=== PATIENT | female | born 1975 | race Caucasian/White ===

== ENCOUNTER 2020-04-21 09:19 | Inpatient (IN) ==
--- NOTE | 2020-03-27 09:07 | History & Physical Report ---
Date of Service March 27, 2020 date of procedure: 04/22/20 procedure: Right Total Knee Arthroplasty Assessment & Plan (1) Arthritis of right knee: Risks and benefits of procedure discussed in detail today, patient would like to proceed with a Right total knee replacement at [facility] as scheduled. will obtain medical clearance from Dr Rodriguez prior to surgery as well as obtain PATs at [facility]. Will place on ASA 81mg po bid x 1 month post op, f/u 2 weeks post op for routine post-operative care and x-ray, sooner if having any problems. will make arrangements for OPPT at the time of discharge. At this point in time, has failed conservative measures and would like to proceed with surgical intervention. This patients COVID status is unknown, has not been tested, but denies symptoms including fever, cough, shortness of breath, loss of taste/smell, chills, sweats or other common symptoms associated with COVID-19 for this elective procedure. Patient also denies known exposure of a COVID positive patient. History of Present Illness Chief Complaint: Right knee pain Primary Care Provider: Juliane Rodriguez Ms Avila is a 44 year old female who complains of right knee pain, presents for pre-op evaluation prior to a right total knee replacement at [facility]. She presents with pain, stiffness, decreased rom and swelling on the right side. She states that the symptoms have been chronic non-traumatic. The symptoms occur constantly with intermittent worsening. Currently the patient states that the symptoms are moderate. She rates her current pain as 5/10 and her worst pain is 8/10. The symptoms are aggravated by kneeling, squatting, standing and rotation. she has had previous injections including visco and cortisone per patient without relief. she has also undergone previous scope and menisectomy without relief in 1999. At this point in time, her pain is affecting her daily activities and would like to proceed with a right total knee replacement. Allergies Allergy/AdvReac Type Severity Reaction Status Date / Time nickel Allergy Mild Rash Verified 12/13/19 15:01 Home Medications Home Medications Medication Instructions Recorded Confirmed Type aspirin 81 mg PO HS 12/13/19 12/13/19 History cholecalciferol (vitamin D3) 50 mcg PO HS 12/13/19 12/13/19 History [Vitamin D3] dapagliflozin [Farxiga] 10 mg PO QAM 12/13/19 01/07/20 History escitalopram oxalate 20 mg PO QAM 12/13/19 12/13/19 History hydrochlorothiazide 25 mg PO QAM 12/13/19 12/13/19 History levothyroxine 137 mcg PO QAM 12/13/19 12/13/19 History lisinopril 10 mg PO QAM 12/13/19 12/13/19 History metformin 1,000 mg PO BID 12/13/19 12/13/19 History niacin 2,000 mg PO QAM 12/13/19 12/13/19 History simvastatin 10 mg PO QAM 12/13/19 12/13/19 History sitagliptin [Januvia] 100 mg PO HS 12/13/19 12/13/19 History turmeric 400 mg PO BID 12/13/19 12/13/19 History Past Med/Surg History Medical History Cervical dysplasia Depression Diabetes mellitus, type 2 NIDDM Hyperlipidemia Hypertension Hypothyroidism Morbid obesity Osteoarthritis Surgical History History of arthroscopy RT KNEE History of hysterectomy S/P LEEP (loop electrosurgical excision procedure) Family History Grandmother (Paternal) Family history of diabetes mellitus Brother Family history of diabetes mellitus Social History Smoking Status: Never smoker Second Hand Exposure: No; Hx Alcohol Use: No Hx Substance Use: No Preferred Language: Turkish Communication Ability: Effective Dolly Pusher Required: No Beliefs That Will Affect Care: None Current Living Situation: Spouse Feels Safe at Home: Yes Review of Systems Review of Systems: All systems reviewed & are unremarkable except as noted in HPI & below Constitutional: no fever, no chills and no sweats Respiratory: no cough and no dyspnea Cardiovascular: no chest pain, no dyspnea and no orthopnea Gastrointestinal: no abdominal pain, no nausea and no vomiting Musculoskeletal: as per Subjective / HPI Physical Exam Physical Exam: Ht: 5ft 7in Wt: 121.6kg BP: 130/80 Pulse: 70 Constitutional: WD/WN, vitals as above no acute distress Respiratory: normal respiratory effort, lungs clear to auscultation no respiratory distress, no labored breathing and does not use accessory muscles Cardiovascular: RRR, no murmur, no edema Gastrointestinal (Abdomen): normal bowel sounds, soft, nontender, no hepatosplenomegaly Musculoskeletal: Knee: + knee abnormal to inspection (Right Knee- ), + effusion (+1 effusion), + limited ROM of knee (ROM 0/3/110), + knee ROM with crepitation, + joint line tenderness (medial joint line) and + Cr's sign positive; no deformity, no skin erythema, no ecchymosis, no valgus laxity, no varus laxity, anterior drawer test negative, Jen's sign negative and pivot shift test negative Results & Data Results & Data ([facility]) Diagnostic Findings Right Knee series showing advanced degenerative changes to the right knee, narrowing of the medial compartment and patello-femoral joint with patellar spurring noted, findings showing joint space narrowing of the medial compartment and patello-femoral joint, osteophyte formation and subchondral sclerosis noted. overall varus alignment. no acute bony pathology noted.
--- NOTE | 2020-04-15 10:56 | Anesthesiology Consultation ---
Date of Service April 15, 2020 Assessment & Plan (1) Encounter for pre-operative examination: - PCP office visit: 12/23/19: "Preoperative physical completed today. Patient is considered low risk for complications of planned surgery procedure. Patient is medically cleared for surgery." - Per assessment on 04/09: Travel screen- Lives in [facility]. Works in [employer]. Uses PPE/follows COVID precaution guidelines. No known COVID- 19 positive contacts or current COVID-19 related symptoms. Surgeon arranging preop COVID testing. Awaiting results. - Check BSG AM DOS Chart Review Chart Review: Acceptable Risk for Surgery and Patient NOT seen in Pre Admission Testing History Surgery Operation Date: 04/21/20 14:05 Proposed Procedures p Right Total Knee Arthroplasty - Kaden Wesley DO Height/Weight Height: 5 ft 7 in Weight: 112.491 kg Allergies Allergy/AdvReac Type Severity Reaction Status Date / Time nickel Allergy Mild Rash Verified 04/09/20 11:00 adhesive Allergy Unknown Rash Verified 04/09/20 11:00 Medications Home Medications Medication Instructions Recorded Confirmed Last Taken cholecalciferol (vitamin D3) 50 mcg PO HS 12/13/19 04/09/20 Unknown [Vitamin D3] dapagliflozin [Farxiga] 10 mg PO HS 12/13/19 04/09/20 Unknown escitalopram oxalate 20 mg PO HS 12/13/19 04/09/20 Unknown hydrochlorothiazide 25 mg PO QAM 12/13/19 04/09/20 Unknown levothyroxine 137 mcg PO QAM 12/13/19 04/09/20 Unknown lisinopril 10 mg PO QAM 12/13/19 04/09/20 Unknown metformin 1,000 mg PO BID 12/13/19 04/09/20 Unknown niacin 2,000 mg PO QAM 12/13/19 04/09/20 Unknown simvastatin 10 mg PO QAM 12/13/19 04/09/20 Unknown sitagliptin [Januvia] 100 mg PO HS 12/13/19 04/09/20 Unknown turmeric 400 mg PO BID 12/13/19 04/09/20 Unknown Past Medical History Medical History (Updated 04/15/20 @ 10:48 by Araceli Rodriguez) Cervical dysplasia Depression Diabetes mellitus, type 2 NIDDM Hyperlipidemia Hypertension Hypothyroidism Obesity Osteoarthritis Past Family History Family History Grandmother (Paternal) Family history of diabetes mellitus Brother Family history of diabetes mellitus Past Surgical History Surgical History History of arthroscopy RT KNEE History of hysterectomy Nausea and vomiting after administration of anesthetic agent S/P LEEP (loop electrosurgical excision procedure) Social History Smoking Status: Never smoker Do You Dip or Chew Tobacco: No Hx Alcohol Use: No Hx Substance Use: No Testing Laboratory Results 03/30/20 WBC 8.9 H/H 13.4/40.7 PLATELETS 288 SODIUM 135 POTASSIUM 3.8 CHLORIDE 100 CO2 25 BUN 24 CREATININE 1.0 GLUCOSE 129 PT 12.2 PTT 30.3 INR 1.1 HGBA1C 6.% UA negative 01/07/20 TYPE AND SCREEN A+Ab- Electrocardiogram Date: 12/23/19 SR at 73bpm. Chest X-Ray Date: 12/27/19 Findings: + NAD
[~2020-04-21 09:19] MED LIST: ACETAMINOPHEN 500 MG TAB PO SCH; BUPIVACAINE 0.5 % 5 MG/1 ML PF 10ML VIAL ONE; CEFAZOLIN 2000MG 2,000 MG/15 ML SYR IV SCH; CeleBREX 200 MG CAP PO SCH; FAMOTIDINE 20 MG TAB PO SCH; GABAPENTIN 900 MG DOSE PO SCH; LR 500ML BOLUS, THEN 15ML/HR IV SCH; METOCLOPRAMIDE HCL 10 MG TABLET PO SCH; ROPIVACAINE 0.5% HCL/PF 150 MG, BUPIVACAINE 0.5% MPF 30 ML, EPINEPHrine 30MG/30ML (OR U... INSTIL SCH; TRANEXAMIC ACID 1,000 MG **IV Intra-op IV SCH; TRANEXAMIC ACID 1,000 MG **IV Pre-op IV SCH; dexAMETHasone 4 MG TAB PO SCH
[2020-04-21] MEDS ORDERED: BACITRACIN INJ 50,000 UNIT VIAL ONE (09:43)
[2020-04-21] MEDS ORDERED: ORTHO JOINT ANESTHETIC ONE (09:43)
[2020-04-21] MEDS ORDERED: ONDANSETRON INJ 2 MG/ML 2 ML VIAL ONE (09:44)
[2020-04-21] MEDS ORDERED: PROPOFOL IV EMULSION 10 MG/ML 20 ML VIAL IV ONE ×3 (09:44→11:33)
[2020-04-21] MEDS ORDERED: LIDOCAINE HCL 2% 2 ML VIAL/AMP(20MG/ML) INFIL ONE (09:44)
[2020-04-21] MEDS ORDERED: MIDAZOLAM HCL 1 MG/ML 2ML VIAL ONE ×2 (09:44)
[2020-04-21] MEDS ORDERED: fentaNYL citrate 100 MCG/2 ML VIAL ONE (09:44)
--- NOTE | 2020-04-21 10:17 | History & Physical Bridge Note ---
Date of Service April 21, 2020 History & Physical Bridge Note I have examined the patient, reviewed the History & Physical and in the interval since the performance of the History & Physical I have noted the following changes of clinical significance: no changes noted
--- NOTE | 2020-04-21 11:33 | Operative Report ---
Post Operative Report Pre & Post Diagnosis Operation Date: 04/21/20 12:20 Pre-Op Diagnosis: Osteoarthritis of Right Knee Post-Op Diagnosis: Osteoarthritis of Right Knee I identified the patient and participated in the time-out.: Yes Procedure Operation Date: 04/21/20 12:20 Actual Procedures p Right Total Knee Arthroplasty(Right) utilizing [facility] [employer] [facility] 2 patient matched total knee arthroplasty size 6 femur 4 tibia 13 polyethylene 32 oval patella- Kaden Wesley DO Surgeon Kaden Wesley DO [employer]G Vásquez Estimated Blood Loss 5 Findings Consistent with Post-Op Diagnosis Patient presents with severe end-stage DJD 10 degree flexion contracture varus alignment subchondral cystic changes marginal osteophytes eburnated [id number] with a moderate to large effusion Specimens Bone and cartilage Drains Medium bore Hemovac Anesthesia Type MAC Spinal Regional Complications none Disposition Accompanied Patient To Recovery: No Disposition: Recovery Room Indications Patient presents with severe end-stage DJD no response to conservative management physical therapy anti-inflammatories relative rest activity m odifications corticosteroid injections Visco supplementation Description of Procedure After proper prepping and draping of the Right lower extremity anterior midline incision was made over the region of the extensor extensor mechanism after meticulous hemostasis was obtained and maintained in subcutaneous tissues a medial parapatellar incision was made The patella was subluxed lateralward the medial lateral gutter were cleaned from any hypertrophic synovitis and scar tissue of the distal femoral block was placed and the distal femoral osteotomy cut was made subsequently the chamfers anterior and posterior osteotomy cuts were made utilizing the 4-in-1 block the tibia was subsequently subluxed anteriorward medial and ateral meniscal remnants were excised in their entirety remnants of the anterior and posterior cruciate ligaments were excised in their entirety excellent exposure of the proximal tibia was obtained the tibial osteotomy guide was placed on the proximal tibial osteotomy cut was made once again the knee was irrigated with copious amounts of sterile saline solution the patella was subsequently everted lateralward thickened scar tissue around the patella was removed the patella was subsequently cut utilizing a freehand technique and was drilled prepared for final preparation and placement of patella socially flexion-extension gaps were checked and the equal and symmetric trials were placed to the appropriate femoral and tibial trials with poly-spacer being placed for equal flexion and extension gaps and full range of motion including extension to 0 and flexion to 140 the trial components after having been taken to recovery range of motion was subsequently removed meticulous hemostasis was obtained and maintained subsequently a knee block injection of joint cocktail including ropivacaine 0.5% 150 mg. Bupivacaine 0.5% epinephrine 1-200,030 mL's toradol 30 mg dexamethasone 4 mg ketamine 10 mg clonidine 100 micrograms normal saline solution 30 mg was infiltrated into the soft tissues of the posterior knee medial lateral gutters and periosteal synovium special attention was paid to protect neurovascular structures at all times subsequently trial components having been removed the knee was irrigated with sterile saline solution. debris was removed the proximal tibia was subsequently prepared and was made ready for the placement of the tibial component tibial component was also cemented and tamped into position the femoral component was subsequently placed and cemented in the position the patellar component was subsequently cemented in position because hemostasis once again obtained and maintained wound having been thoroughly irrigated with debridement and debridement lavage was performed as well as a medial parapatellar incision closed with #1 Vicryl in interrupted fashion subcutaneous was closed with #2 Vicryl skin was closed with skin clips. PA-C was necessary for prepping and drapping as well as wound closure of deep fascia Sub cutaneous tissue and skin and was necessary for the case. A sterile compressive dressing was placed patient was taken to recovery in stable condition of report dictated by Lupillo I attest to the content of the Intraoperative Record and any orders documented therein. Any exceptions are noted below. I attest to the content of the Intraoperative Record and any orders documented therein. Any exceptions are noted below.
[2020-04-21] MEDS ORDERED: ONDANSETRON INJ 2 MG/ML 2 ML VIAL IV PRN ×2 (11:52→12:53)
[2020-04-21] MEDS ORDERED: ePHEDrine sulfate 50 MG/ML AMP IV PRN (11:52)
[2020-04-21] MEDS ORDERED: ATROPINE SULFATE 0.1 MG/ML 10ML SYR IV PRN (11:52)
[2020-04-21] MEDS ORDERED: fentaNYL citrate 100 MCG/2 ML VIAL IV PRN (11:52)
--- NOTE | 2020-04-21 12:31 | Anesthesiology Progress Note ---
Date of Service April 21, 2020 Anesthesia Post Procedure Vital Signs Vital Signs: Temp Pulse Resp BP BP Pulse Ox 04/21/20 12:25 75 14 109/69 96 04/21/20 12:15 16 107/64 100 04/21/20 12:08 99.0 F 16 100/62 96 04/21/20 10:07 75 18 120/66 100 04/21/20 09:39 98.6 F 68 18 117/65 99 Transfer of Care Handoff Completed per policy Notes Mental Status: alert / awake / arousable and participated in evaluation Patient Amnestic to Procedure: Yes Nausea / Vomiting: adequately controlled Pain: adequately controlled Airway Patency, RR, SpO2: stable & adequate BP & HR: stable & adequate Hydration State: stable & adequate Neuraxial Anesthesia: was administered and sensory block is resolving Anesthetic Complications: no major complications apparent and Pt Satisfied with anesthetic care
--- NOTE | 2020-04-21 12:49 | XRay Report ---
RIGHT KNEE 2 VIEWS History: Right total knee arthroplasty. Degenerative arthritis. Postop. FINDINGS: The patient is status post a right total knee arthroplasty. The hardware is intact. No frac ture or dislocation. Skin araseli and surgical drains are in place. IMPRESSION: Right total knee arthroplasty. No evidence for hardware complication. ACT 112: Negative or not required by law. Electronically signed by: Jose Ng M.D. 04/21/2020 12:48 PM
[2020-04-21] MEDS ORDERED: HYDROmorphone INJ 1 MG/ML SYRINGE IV PRN (12:53)
[2020-04-21] MEDS ORDERED: METOCLOPRAMIDE HCL INJ 5 MG/ML 2 ML VIAL IV PRN (12:53)
[2020-04-21] MEDS ORDERED: bisacodyL 10 MG SUPP PR PRN (12:53)
[2020-04-21] MEDS ORDERED: NALOXONE HCL 0.4 MG/1 ML VIAL/CARP IV PRN (12:53)
[2020-04-21] MEDS ORDERED: MAGNESIUM HYDROXIDE SUSP 30 ML UDC PO PRN (12:53)
[2020-04-21] MEDS ORDERED: PHARMACY GLYCEMIC MGMT CONSULT PRN (13:01)
--- NOTE | 2020-04-21 13:13 | Pharmacy Report ---
Glycemic Control Consultation - Date of Service April 21, 2020 - Scope Scope: Glycemic Pharmacist consulted for glycemic control and to write orders per [facility] inpatient glycemic control protocol. - Objective Weight: 112.7 kg Accuchecks BSG (last 24hrs): 04/21/20 04/21/20 09:39 12:11 POC Glucose 101 H 123 H - Recent Pertinent Medications Outpatient Anti-diabetic Regimen: * metformin 1 gm bid, januvia 100 mg HS, farxiga 10 mg hs * A1c = 8.1 % 04/2020 Risk Factors for Insulin Resistance: * Steroids: DXM 8 po * Recent Surgery: POD 0 * Diet: yes \ - Assessment & Plan Assessment & Plan: ASSESSMENT: * 44 year old now s/p right knee arthroplasty. Pharmacy consulted for glycemic management. Received steroids preop therefore anticipate steroid induced hyperglycemia. Will utilize basal/bolus insulin postop PLAN FOR INPATIENT GLYCEMIC CONTROL: * Holding outpatient oral diabetes medications * Basal insulin * NPH 20 units x 1 (0.2 units/kg) to cover steroids * Bolus insulin * NovoLog per scale ACHS or Q6hrs while NPO * Goal Range: Low 110 mg/dL - High 140 mg/dL * Correction Factor: 20 mg/dL/unit * Nutritional / Prandial insulin per carb ratio of 1 unit per 7 grams CHO consumed * Please note that the plan above was derived based on current level of insulin resistance and hospital stress. These recommendations are appropriate for inpatient admission only. Plan of care upon discharge will need to be reassessed to avoid potential outpatient hypo/hyperglycemia. Thank you.
[2020-04-21] MEDS ORDERED: GLUCAGON FOR INJ 1 MG VIAL IM PRN (13:15)
[2020-04-21] MEDS ORDERED: DEXTROSE 50% 50 ML SYRINGE IV PRN (13:15)
[2020-04-21] MEDS ORDERED: NovoLIN-N (NPH) PER UNIT CHARGE SQ ONE (13:15)
[2020-04-21] MEDS ORDERED: CARBOHYDRATES FOR HYPOGLYCEMIA PO PRN (13:15)
[2020-04-21] MEDS ORDERED: GLUCOSE 10 TABS/TUBE PO PRN (13:15)
[2020-04-21] MEDS ORDERED: GLUCOSE 40% GEL 15 GM TUBE PO PRN (13:15)
[2020-04-21] MEDS: KETOROLAC TROMETHAMINE 15 MG/ML VIAL IV SCH ×2 (14:02→20:10)
[2020-04-21] MEDS: SODIUM CHLORIDE 0.9% 1000ML 1,000 ML IV SCH ×2 (14:02→22:13)
[2020-04-21] MEDS: INSULIN ASPART 100 UNITS/ML 3 ML PEN SC SCH ×3 (14:03→21:07)
[2020-04-21] MEDS: ACETAMINOPHEN 500 MG TAB PO SCH ×2 (16:17→22:13)
[2020-04-21] MEDS: CEFAZOLIN 2000MG 2,000 MG/15 ML SYR IV SCH (18:03)
[2020-04-21] MEDS: OXYCODONE HCL IR 5 MG TAB (IMMEDIATE RELEASE) PO PRN (20:11)
[2020-04-21] MEDS: DOCUSATE SODIUM 100 MG CAP PO SCH (20:12)
[2020-04-21] MEDS: CHOLECALCIFEROL 1,000 UNITS 25 MCG TAB PO SCH (20:12)
[2020-04-21] MEDS: SENNA 8.6 MG TAB PO SCH (20:12)
[2020-04-21] MEDS: ESCITALOPRAM OXALATE 20 MG TAB PO SCH (20:12)
[2020-04-21] MEDS: ASPIRIN 81 MG ECTAB PO SCH (20:12)
[2020-04-22] MEDS: OXYCODONE HCL IR 5 MG TAB (IMMEDIATE RELEASE) PO PRN ×3 (00:27→17:28)
[2020-04-22] MEDS: INSULIN ASPART 100 UNITS/ML 3 ML PEN SC SCH ×6 (00:29→21:09)
[2020-04-22] MEDS: KETOROLAC TROMETHAMINE 15 MG/ML VIAL IV SCH ×2 (02:40→08:32)
[2020-04-22] MEDS: CEFAZOLIN 2000MG 2,000 MG/15 ML SYR IV SCH (02:40)
[2020-04-22] MEDS: ACETAMINOPHEN 500 MG TAB PO SCH ×3 (05:46→21:08)
[2020-04-22] MEDS: LEVOTHYROXINE SODIUM 137 MCG TABLET PO SCH (05:47)
[2020-04-22 06:10] LABS: Hematocrit (blood only) 34.7 % (37-47); Hemoglobin 11.7 g/dL (12.0-16.0); Mean Corpuscular Hemoglobin 29.3 pg (25-34); Mean Corpuscular Hgb Conc 33.7 g/dL (32-36); Mean Platelet Volume 9.4 fL (7.4-10.4); Platelet Count 243 K/uL (130-400); RDW Coefficient of Variation 13.1 % (11.5-14.5); RDW Standard Deviation 42.3 fL (36.4-46.3); Red Blood Count 3.99 M/uL (4.2-5.4); White Blood Count 17.03 K/uL (4.8-10.8)
[2020-04-22 06:41] LABS: BUN Creatinine Ratio 18.5 (10-20); Calcium 8.1 mg/dl (8.5-10.1); Creatinine Clr Calc Pharmacy 79.6 ml/min; Est GFR (African American) 65.4; Est GFR (Non-African American) 56.4
--- NOTE | 2020-04-22 07:02 | Orthopedic Progress Note ---
Date of Service April 22, 2020 Assessment & Plan (1) History of total right knee replacement: POD #1 s/p Right TKA pt/ot dvt proph with [facility]/SCD/ASA plan for d/c home with outpatient PT, likely Admission and Anticipated Discharge Date Admission Date: April 21, 2020 Subjective POD #1 s/p Right TKA Review of Systems Constitutional: no fever, no chills and no sweats Respiratory: no cough and no dyspnea Cardiovascular: no chest pain and no dyspnea Gastrointestinal: no abdominal pain, no nausea and no vomiting Physical Exam Physical Exam: Vital Signs Temp 36.7 C 04/22/20 02:47 Pulse 61 04/22/20 02:47 Resp 16 04/22/20 02:47 BP 101/61 04/22/20 02:47 Pulse Ox 95 04/22/20 02:47 Intake & Output 04/21/20 04/22/20 04/22/20 18:59 06:59 18:59 Intake Total 1999 / 4218.333 2218.333 / 4218.33 3 Output Total 635 / 1380 745 / 1380 Balance 1365 / 2838.333 1473.333 / 2838.33 3 Weight 112.7 kg Intake: IV 800 / 2618.333 1818.333 / 2618.33 3 Lr 1,000 ml @ 15 mls/hr IV . 600 / 600 Q24H [facility] Rx#:[id number] Nss 1000ML 1,0 00 ml @ 100 mls/ 1818.333 / 1818.33 3 hr IV .Q10H [facility] Rx#:[id number] TRANEXAMIC ACI D / 0.7% NACL 1, 200 / 200 000 mg In 100 ml @ 600 mls/hr IV TODAY@0600 [facility] Rx#:[id number] IV Perioperative 1200 / 1200 Oral 400 / 400 Output: Urine 600 / 1250 650 / 1250 Estimated Blood Loss 5 / 5 Drain Output 30 / 125 95 / 125 Right Knee Hem ovac 30 / 125 95 / 125 Constitutional: WD/WN, vitals as above no acute distress Musculoskeletal: Right Leg: NVDI, calf SNT, negative tawny sign. DP palpable, able to wiggle toes/ankle movement without difficulty. dressing clean dry and intact. Results & Data ([facility]) Vital Signs (Past 12 Hours) Vital Signs Temp Pulse Resp BP Pulse Ox 04/22/20 02:47 36.7 C 61 16 101/61 95 04/21/20 23:14 36.8 C 83 16 103/64 95 04/21/20 20:33 37 C 79 16 96/58 L 95 Laboratory Results Laboratory Results WBC 17.03 K/uL (4.8-10.8) H 04/22/20 05:19 RBC 3.99 M/uL (4.2-5.4) L 04/22/20 05:19 Hgb 11.7 g/dL (12.0-16.0) L 04/22/20 05:19 Hct 34.7 % (37-47) L 04/22/20 05:19 MCV 87.0 fL (80-100) 04/22/20 05:19 MCH 29.3 pg (25-34) 04/22/20 05:19 MCHC 33.7 g/dL (32-36) 04/22/20 05:19 RDW Std Deviation 42.3 fL (36.4-46.3) 04/22/20 05:19 RDW Coeff of Gustavo 13.1 % (11.5-14.5) 04/22/20 05:19 Plt Count 243 K/uL (130-400) 04/22/20 05:19 MPV 9.4 fL (7.4-10.4) 04/22/20 05:19 Sodium 139 mmol/L (136-145) 04/22/20 05:19 Potassium 4.0 mmol/L (3.5-5.1) 04/22/20 05:19 Chloride 109 mmol/L (98-107) H 04/22/20 05:19 Carbon Dioxide 24 mmol/L (21-32) 04/22/20 05:19 Anion Gap 6.0 (3-11) 04/22/20 05:19 BUN 22 mg/dl (7-18) H 04/22/20 05:19 Creatinine 1.18 mg/dl (0.6-1.2) 04/22/20 05:19 Est Cr Clr Drug Dosing 79.6 ml/min 04/22/20 05:19 Est GFR ( Amer) 65.4 04/22/20 05:19 Est GFR (Non-Af Amer) 56.4 04/22/20 05:19 BUN/Creatinine Ratio 18.5 (10-20) 04/22/20 05:19 Glucose 171 mg/dl (70-99) H 04/22/20 05:19 POC Glucose 161 mg/dl (70-99) H 04/22/20 04:20 Calcium 8.1 mg/dl (8.5-10.1) L 04/22/20 05:19 Blood Type A Positive 04/21/20 09:33 Antibody Screen NEGATIVE 04/21/20 09:33 Diagnostic Findings RIGHT KNEE 2 VIEWS History: Right total knee arthroplasty. Degenerative arthritis. Postop. FINDINGS: The patient is status post a right total knee arthroplasty. The hardware is intact. No fracture or dislocation. Skin araseli and surgical drains are in place. IMPRESSION: Right total knee arthroplasty. No evidence for hardware complication.
[2020-04-22] MEDS: DOCUSATE SODIUM 100 MG CAP PO SCH ×2 (08:32→17:33)
[2020-04-22] MEDS: SIMVASTATIN 10 MG TAB PO SCH (08:32)
[2020-04-22] MEDS: MULTIVITAMIN TAB PO SCH (08:32)
[2020-04-22] MEDS: ASPIRIN 81 MG ECTAB PO SCH ×2 (08:32→21:08)
--- NOTE | 2020-04-22 09:46 | Pharmacy Report ---
Pharmacy Glycemic Short Note 2 - Date of Service April 22, 2020 - Glycemic Short BSG Results (Last 24 hours): 04/21/20 04/21/20 04/21/20 09:39 12:11 13:09 Glucose POC Glucose 101 H 123 H 132 H 04/21/20 04/21/20 04/22/20 17:27 20:39 00:23 Glucose POC Glucose 149 H 179 H 156 H 04/22/20 04/22/20 04/22/20 04:20 05:19 08:07 Glucose 171 H POC Glucose 161 H 142 H ASSESSMENT: 04/22 * Patient received total of 35 units of insulin yesterday, of which 20 were NPH to cover steroids * Fasting BSG 142 mg/dL - hold basal this AM, may add scale for HS time if BSGs trending up * Continue same CF/CR for now, anticipate it will need loosened once steroids wear off PLAN FOR INPATIENT GLYCEMIC CONTROL: * Plan to restart home metformin and Januvia today. Patient tolerating diet * Basal insulin * Lantus 0-10 units HS based upon BSG * Bolus insulin * NovoLog per scale ACHS or Q6hrs while NPO * Goal Range: Low 110 mg/dL - High 140 mg/dL * Correction Factor: 20 mg/dL/unit * Nutritional / Prandial insulin per carb ratio of 1 unit per 7 grams CHO consumed * Please note that the plan above was derived based on current level of insulin resistance and hospital stress. These recommendations are appropriate for inpatient admission only. Plan of care upon discharge will need to be reassessed to avoid potential outpatient hypo/hyperglycemia. Thank you. PLAN FOR DISCHARGE: * A1C 8.1% - goal <7% reasonable. This value is increased from 7.5% in July * Per her provider medical clearance notes, patient reports snacking more since COVID has started and has had a lot of stress from job. Focusing now on diet, and eating a low carb diet and trying to get back on track * Reasonable to continue home diabetic agents on discharge. However, would recommend continued education for healthy lifestyle (diet, exercise) and continued self monitoring of blood sugars at home (3-4x/day). Would recommend follow up with PCP if blood sugars consistently >200 mg/dL
[2020-04-22] MEDS: METFORMIN HCL 500 MG TAB PO SCH (17:28)
[2020-04-22] MEDS: SENNA 8.6 MG TAB PO SCH (17:33)
[2020-04-22] MEDS ORDERED: LANTUS PER UNIT CHARGE SQ SCH (21:00)
[2020-04-22] MEDS ORDERED: SITAGLIPTIN PHOSPHATE 100 MG TAB PO SCH (21:00)
[2020-04-22] MEDS: CeleBREX 200 MG CAP PO SCH (21:07)
[2020-04-22] MEDS: CHOLECALCIFEROL 1,000 UNITS 25 MCG TAB PO SCH (21:08)
[2020-04-22] MEDS: ESCITALOPRAM OXALATE 20 MG TAB PO SCH (21:08)
[2020-04-23] MEDS: OXYCODONE HCL IR 5 MG TAB (IMMEDIATE RELEASE) PO PRN (05:43)
[2020-04-23] MEDS: ACETAMINOPHEN 500 MG TAB PO SCH (05:44)
[2020-04-23] MEDS: LEVOTHYROXINE SODIUM 137 MCG TABLET PO SCH (05:45)
[2020-04-23] MEDS: MULTIVITAMIN TAB PO SCH (08:56)
[2020-04-23] MEDS: SIMVASTATIN 10 MG TAB PO SCH (08:56)
[2020-04-23] MEDS: METFORMIN HCL 500 MG TAB PO SCH (08:57)
[2020-04-23] MEDS: INSULIN ASPART 100 UNITS/ML 3 ML PEN SC SCH (08:57)
[2020-04-23] MEDS: CeleBREX 200 MG CAP PO SCH (08:57)
[2020-04-23] MEDS: ASPIRIN 81 MG ECTAB PO SCH (08:57)
[2020-04-23] MEDS: DOCUSATE SODIUM 100 MG CAP PO SCH (08:57)
--- NOTE | 2020-04-23 08:57 | Orthopedic Progress Note ---
Date of Service April 23, 2020 Assessment & Plan (1) History of total right knee replacement: POD #2 s/p Right TKA pt/ot dvt proph with [facility]/SCD/ASA plan for d/c home with outpatient PT, likely today after PT Admission and Anticipated Discharge Date Admission Date: April 21, 2020 Subjective POD #2 s/p Right TKA. Having some increased pain today compared to yesterday, reassured patient. Controlled with PO pain medication. Denies complaints, no chest pain, sob, n/v/d. Review of Systems Review of Systems: All systems reviewed & are unremarkable except as noted in HPI & below Physical Exam Physical Exam: Right knee: Pierre is in place, c/d/i. Dressing to hemovac site with mild bloody drainage. No calf tenderness, calves soft. Good dorsiflexion, toes mobile. Distally n/v status and sensation are intact. Constitutional: well developed and well nourished; no acute distress Results & Data ([facility]) Vital Signs (Past 12 Hours) Vital Signs Temp Pulse Resp BP Pulse Ox 04/23/20 07:43 36.7 C 71 18 122/80 96 04/23/20 00:36 36.9 C 72 14 110/68 97
[2020-04-23] MEDS ORDERED: lisinopriL 10 MG TAB PO SCH (09:00)
[2020-04-23] MEDS ORDERED: hydroCHLOROthiazide 25 MG TAB PO SCH (09:00)
--- NOTE | 2020-04-23 10:56 | Discharge Summary ---
Date of Service date of discharge: April 23, 2020 date of admission: 04-21-20 Admission HPI Per Admitting Provider Ms Avila is a 44 year old female who complains of right knee pain, presents for pre-op evaluation prior to a right total knee replacement at [facility]. She presents with pain, stiffness, decreased rom and swelling on the right side. She states that the symptoms have been chronic non-traumatic. The symptoms occur constantly with intermittent worsening. Currently the patient states that the symptoms are moderate. She rates her current pain as 5/10 and her worst pain is 8/10. The symptoms are aggravated by kneeling, squatting, standing and rotation. she has had previous injections including visco and cortisone per patient without relief. she has also undergone previous scope and menisectomy without relief in 1999. At this point in time, her pain is affecting her daily activities and would like to proceed with a right total knee replacement. Principal Diagnosis right knee arthritis Discharge Exam Vital Signs Temp 36.7 C 04/23/20 09:11 Pulse 79 04/23/20 09:11 Resp 18 04/23/20 09:11 BP 120/66 04/23/20 09:11 Pulse Ox 96 04/23/20 09:11 Intake & Output 04/22/20 04/23/20 04/23/20 18:59 06:59 18:59 Intake Total 240 / 460 220 / 460 Output Total 125 / 175 50 / 175 Balance 115 / 285 170 / 285 Weight 112.7 kg Intake: Oral 240 / 460 220 / 460 Output: Drain Output 125 / 175 50 / 175 Right Knee Hemovac 125 / 175 50 / 175 Other: # Unmeasured Voids 1 Constitutional WD/WN, vitals as above no acute distress Musculoskeletal right knee: NVDI, calf SNT, negative tawny sign. DP palpable, able to wiggle toes/ankle movement without difficulty. KWAME dressing clean dry and intact. expected post-operative bruising noted. Discharge Data Allergies Allergy/AdvReac Type Severity Reaction Status Date / Time nickel Allergy Mild Rash Verified 04/21/20 09:34 adhesive Allergy Unknown Rash Verified 04/21/20 09:34 Consultations 04/21/20 12:53 Consult Case Management - Discharge Planning Routine Procedures Performed Operation Date: 04/21/20 12:20 Actual Procedures p Right Total Knee Arthroplasty(Right) - Kaden Wesley DO Ordered Studies 04/21/20 05:00 US - OR guided needle placemen Routine Hospital Course (1) History of total right knee replacement: POD #2 s/p Right TKA pt/ot dvt proph with MARIAN/SCD/ASA plan for d/c home with outpatient PT Laboratory Results WBC 17.03 K/uL (4.8-10.8) H 04/22/20 05:19 RBC 3.99 M/uL (4.2-5.4) L 04/22/20 05:19 Hgb 11.7 g/dL (12.0-16.0) L 04/22/20 05:19 Hct 34.7 % (37-47) L 04/22/20 05:19 MCV 87.0 fL (80-100) 04/22/20 05:19 MCH 29.3 pg (25-34) 04/22/20 05:19 MCHC 33.7 g/dL (32-36) 04/22/20 05:19 RDW Std Deviation 42.3 fL (36.4-46.3) 04/22/20 05:19 RDW Coeff of Gustavo 13.1 % (11.5-14.5) 04/22/20 05:19 Plt Count 243 K/uL (130-400) 04/22/20 05:19 MPV 9.4 fL (7.4-10.4) 04/22/20 05:19 Sodium 139 mmol/L (136-145) 04/22/20 05:19 Potassium 4.0 mmol/L (3.5-5.1) 04/22/20 05:19 Chloride 109 mmol/L (98-107) H 04/22/20 05:19 Carbon Dioxide 24 mmol/L (21-32) 04/22/20 05:19 Anion Gap 6.0 (3-11) 04/22/20 05:19 BUN 22 mg/dl (7-18) H 04/22/20 05:19 Creatinine 1.18 mg/dl (0.6-1.2) 04/22/20 05:19 Est Cr Clr Drug Dosing 79.6 ml/min 04/22/20 05:19 Est GFR ( Amer) 65.4 04/22/20 05:19 Est GFR (Non-Af Amer) 56.4 09/16/20 05:19 BUN/Creatinine Ratio 18.5 (10-20) 04/22/20 05:19 Glucose 171 mg/dl (70-99) H 04/22/20 05:19 POC Glucose 112 mg/dl (70-99) H 04/23/20 08:29 Calcium 8.1 mg/dl (8.5-10.1) L 04/22/20 05:19 Blood Type A Positive 04/21/20 09:33 Antibody Screen NEGATIVE 04/21/20 09:33 Total Time Total Time Spent Total Time Spent (In Minutes): 20 Total Time Includes: Examination of the Patient, Discharge Planning and Medication Reconciliation Discharge Plan Discharge Items Patient Disposition: Home - Self-Care Reason For Visit: Osteoarthritis of Right Knee Discharge Diagnosis: Right total knee replacement Activity: Per Instructions section Lifting: Wait until after follow-up appointment Weightbearing Comment: WBAT with walker Non-emergency contact: Surgeon Call non-emergency contact if: you have any medication questions, your pain is not controlled, your temperature is above 101, your wound has increased redness, your wound has increased drainage and your wound pain has increased Follow-up/Referrals: Juliane Rodriguez D.O. [Primary Care Provider] - Lynda Attending Provider Instructions: ACTIVITY RECOMMENDATIONS: SELF CARE INSTRUCTIONS AFTER TOTAL KNEE REPLACEMENT A. You may need to continue a physical therapy program after discharge from the hospital. There are several options available to you. Your doctor will assist you in selecting the best one for you. 1. An out-patient facility 2 to 3 times a week for therapy or home therapy. 2. Continue working on all exercises taught to you in the hospital. Your goals should be to increase bending of your knee to 90 degrees and beyond and to fully straighten your knee. B. You may progress at your own pace from walking with a walker or crutches to a cane; then to no assistive devices. C. Make walking a part of your daily routine. Be up as much as comfortable with rest periods throughout the day. Rest with leg elevation is very important. Use the ice wrap frequently for the first 3-4 weeks. D. There are no restrictions on activities. You may ride in a car, shop, participate in automation engineering technician and all social activities. E. Wear the long elastic stockings (MARIAN hose) 20 hours a day for 2 weeks after surgery. They can be removed several times a day for laundering and for a bath. F. You may shower, no tub baths until cleared by your doctor. SPECIAL CARE INSTRUCTIONS: VERY IMPORTANT TO READ AND REVIEW A. There are a few signs you need to watch for after you are home. Call [facility] if you notice any of the followin. Increased severe knee pain. Some pain is expected especially when you exercise. 2. Increased swelling in your leg or knee; pain or swelling of the calf muscle in either lower leg. 3. Any fluid drainage from the incision. 4. Shortness of breath or chest pain. B. Please call [facility] at if you have any concerns or questions about your operation or recovery. The doctor or his nurse will return your call promptly. C. You must take antibiotics before dental work, bladder, bowel or other surgery. Your doctor will provide you with a permanent care to carry describing this precaution. IMPORTANT: * REMEMBER TO TAKE ASPIRIN, 81 MG, TWICE DAILY FOR 4 WEEKS UNLESS OTHERWISE DIRECTED. THIS IS YOUR BLOOD THINNER. * HIGH RISK PATIENTS MAY BE PRESCRIBED A STRONGER BLOOD THINNER. THIS WILL BE PROVIDED AT DISCHARGE. * CALL IF INCREASED PAIN, REDNESS, DRAINAGE OR FEVER GREATER THAT 101. * WEAR MARIAN HOSE 20 HOURS PER DAY FOR 2 WEEKS. * KWAME Dressing- This is a large suction dressing covering your incision. This will help pull any excess drainage from the wound and allow your incision to heal properly. You may shower with this if you can keep the unit outside of the shower. If any bleeding or leakage is noted please call your doctor's office. This will remain on your incision for 7 days and then should be removed. This can be done yourself or by the home nursing staff if applicable. The entire unit is disposable once removed. Once removed, keep incision clean and dry. If redness or drainage is noted, please call your surgeon. IF INCISION IS LEAKING THROUGH DRESSING, CALL THE OFFICE . FOLLOW UP VISIT: If appointment is not already scheduled: Please call [facility] to make a follow-up appointment for 2 weeks after your surgery at . Stand-Alone Forms: Offerama, Opioid Pain Management, Smoking Cessation Medications and DC Order Prescriptions: New celecoxib [Celebrex] 200 mg Capsule 200 mg PO BID Qty: 60 RF: 0 aspirin 81 mg Tablet,Delayed Release (Dr/Ec) 81 mg PO BID Qty: 60 RF: 0 acetaminophen 500 mg Tablet 1,000 mg PO Q8 Qty: 60 RF: 0 oxycodone 5 mg Tablet 5 - 10 mg PO .Q4h-6h MDD 6 PRN (Reason: pain) Qty: 30 RF: 0 cefadroxil 500 mg capsule 500 mg PO BID Qty: 14 RF: 0 Continued levothyroxine 137 mcg Tablet 137 mcg PO QAM RF: 0 simvastatin 10 mg Tablet 10 mg PO QAM RF: 0 metformin 1,000 mg Tablet 1,000 mg PO BID RF: 0 lisinopril 10 mg Tablet 10 mg PO QAM RF: 0 hydrochlorothiazide 25 mg Tablet 25 mg PO QAM RF: 0 escitalopram oxalate 20 mg Tablet 20 mg PO HS RF: 0 Januvia 100 mg Tablet 100 mg PO HS RF: 0 cholecalciferol (vitamin D3) [Vitamin D3] 50 mcg (2,000 unit) Capsule 50 mcg PO HS RF: 0 niacin 1,000 mg Tablet Extended Release 2,000 mg PO QAM RF: 0 Farxiga 5 mg Tablet 10 mg PO HS RF: 0 turmeric 400 mg Capsule 400 mg PO BID RF: 0 Discharge Orders: Discharge Order (Routine); Ordered 04/23/20 Ordered By: Damon Santiago/Other Patient Handouts: Preventing Deep Vein Thrombosis, ED Marylin Mehta Admission Data Admit Date/Time: 04/21/20 14:21 Attending Provider: Kaden Wesley Admit Provider: Kaden Wesley Primary Care Provider: Juliane Rodriguez Other Interventions: Discharge Summary Assessment (RN) Last Done: 04/23/20 09:11
== END 2020-04-23 11:29 | disposition home or self-care (01) | DRG 470 ==
LOC: ASU 09:19 → 3E 09:19